=== PATIENT | female | born 1970 | race Caucasian/White ===

== ENCOUNTER 2017-10-04 10:20 | Emergency (ER) | payer OTHER ==
[~2017-10-04] VITALS: Ht 170.2 cm; Wt 80.7 kg
[2017-10-04] MEDS ORDERED: ZITHROMAX250 M2 PO (11:14)
[2017-10-04] MEDS ORDERED: PERCOCET 10-321 EACH PO (11:15)
[2017-10-04] MEDS ORDERED: PROMETHAZINE-D118 ML PO (11:15)
[2017-10-04] MEDS ORDERED: CLONAZEPAM1 M2 PO (11:15)
[2017-10-04] MEDS ORDERED: SKELAXIN800 M1 PO (11:16)
[2017-10-04] MEDS ORDERED: CLONAZEPAM0.5 M2 PO (11:16)
[2017-10-04] MEDS ORDERED: MEDROL4 M1 PO (11:17)
[2017-10-04 12:11] LABS: ABSOLUTE BASOPHIL COUNT 0.1 /CUMM (0.0-0.2); ABSOLUTE EOSINOPHIL COUNT 0 /CUMM (0.0-0.7); ABSOLUTE GRANULOCYTE CT 7.3 /CUMM (1.4-6.5); ABSOLUTE LYMPH COUNT 1.8 /CUMM (1.2-3.4); ABSOLUTE MONOCYTE COUNT 0.2 /CUMM (0.10-0.60); BASOPHIL % 0.7 % (0.0-2.0); EOSINOPHIL % 0.5 % (0-5); HEMATOCRIT 42.5 % (37-47); MEAN CORPUSCULAR HGB 31.3 PG (27.0-31.0); MEAN CORPUSCULAR HGB CONC 34.6 G/DL (33.0-37.0); MEAN CORPUSCULAR VOLUME 90.4 FL (81.0-99.0); MEAN PLATELET VOLUME 7.4 FL (7.4-10.4); PLATELET COUNT 359 /CUMM (130-400); RBC DISTRIBUTION WIDTH 13.9 % (11.5-14.5); WHITE BLOOD CELL COUNT 9.5 /CUMM (4.8-10.8)
--- NOTE | 2017-10-04 12:25 | ED GENERAL ADULT ---
History of Present Illness General Chief Complaint: General Adult Stated Complaint: BLOODY STOOL, +V, BLURRY VISION Source: patient Exam Limitations: no limitations Vital Signs & Intake/Output Vital Signs & Intake/Output Vital Signs Date Time Temp Pulse Resp B/P B/P Pulse O2 O2 Flow FiO2 Mean Ox Delivery Rate 10/04 1331 97.8 78 18 146/87 100 Room Air Room Air 10/04 1025 98.3 80 20 133/97 97 Room Air Allergies Coded Allergies: Penicillins (UNKNOWN 10/04/17) Reconcile Medications Azithromycin (Zithromax) 250 MG TABLET 1 TAB PO DAILY ANTI-INFLAMMATORY ( Reported) Brompheniramine/Pseudoephed/Dm (Bromfed Dm Cough Syrup) 2 MG-30 MG-10 MG/5 ML SYRUP 5-10 ML PO Q4-6 PRN PRN sinus congestion Clonazepam 1 MG TABLET 1.5 TAB PO QPM MENTAL HEALTH (Reported) Clonazepam 0.5 MG TABLET 1 TAB PO DAILY ANXIETY (Reported) Metaxalone (Skelaxin) 800 MG TABLET 1 TAB PO DAILY MUSCLE RELAXANT (Reported) Methylprednisolone (Medrol) 4 MG TABLET 1 TAB PO DAILY STEROID (Reported) Ondansetron (Zofran Odt) 4 MG TAB.RAPDIS 1 TAB SL TID PRN nausea Oxycodone HCl/Acetaminophen (Percocet 10-325 MG Tablet) 10 MG-325 MG TABLET 1 TAB PO TID PAIN (Reported) Promethazine/Dextromethorphan (Promethazine-Dm Syrup) 6.25 MG-15 MG/5 ML SYRUP 5 ML PO Q6P PRN COUGH (Reported) Triage Note: PT TO ED C/O 3 EPISODES OF BLACK STOOL SINCE YESTERDAY. C/O N/V. PT IS CURRENTLY BEING TREATED FOR A SINUS INFECTION, DOES NOT FEEL ANY BETTER. C/O BLURRY VISION STARTED THIS AM. Triage Nurses Notes Reviewed? yes Onset: Gradual Duration: day(s): Timing: recent history Severity: moderate HPI: 46-year-old female presents emergency department complaining of 3 episodes of black diarrhea beginning yesterday. Patient also reports associated nausea with one episode of nonbloody, bilious vomiting. Patient states that this morning she woke up with blurry vision OU. She wears distance glasses however did not test her vision with her glasses on. Patient is on day 4 of z pack antibiotics for sinus infection. She reports headache 7/10 for the past several days. She reports history of GI upset with erythromycin previously. The patient denies abdominal pain, fevers, chills, sick contact, changes in diet, head trauma, eye pain, eye discharge. (Malena Petersen) Past History Travel History Traveled to [place] past 21 day No Medical History Any Pertinent Medical History? see below for history Musculoskeletal: HERNIATED DISKS FUSIONS Surgical History Surgical History: non-contributory Psychosocial History What is your primary language Macedonian Tobacco Use: Current Daily Use Daily Tobacco Use Amount/Type: => 5 Cigarettes daily ETOH Use: denies use Illicit Drug Use: denies illicit drug use Family History Hx Contributory? No (Malena Petersen) Review of Systems Review of Systems Constitutional: Reports: no symptoms. EENTM: Reports: see HPI. Respiratory: Reports: no symptoms. Cardiovascular: Reports: no symptoms. GI: Reports: see HPI. Genitourinary: Reports: no symptoms. Musculoskeletal: Reports: no symptoms. Skin: Reports: no symptoms. Neurological/Psychological: Reports: see HPI. Hematologic/Endocrine: Reports: no symptoms. Immunologic/Allergic: Reports: no symptoms. All Other Systems: Reviewed and Negative (Malena Petersen) Physical Exam Physical Exam General Appearance: well developed/nourished, no apparent distress, alert, awake Head: atraumatic, normal appearance Eyes: Bilateral: normal appearance, PERRL, EOMI. Ears, Nose, Throat: normal pharynx, normal ENT inspection, hearing grossly normal, maxillary sinus tenderness bilaterally Neck: normal inspection, supple, full range of motion Respiratory: normal breath sounds, no respiratory distress, lungs clear Cardiovascular: regular rate/rhythm Gastrointestinal: normal bowel sounds, soft, non-tender, no organomegaly Rectal: normal exam, normal rectal tone, heme negative stool Back: normal inspection, normal range of motion Extremities: normal inspection, normal range of motion Neurologic/Psych: awake, alert, oriented x 3 Skin: intact, normal color, warm/dry Core Measures ACS in differential dx? No CVA/TIA Diagnosis: No Sepsis Present: No Sepsis Focused Exam Completed? No (Malena Petersen) Progress Differential Diagnoses I considered the following diagnoses in my evaluation of the patient: [Sinusitis , ICH, intracranial mass/lesion, infectious diarrhea, medication adverse reaction, GI bleeding, colitis, conjunctivitis] Plan of Care: Orders Procedure Date/time Status LIPASE 10/05 1155 Complete HUMAN BETA HCG SCREEN 10/05 1155 Complete COMPREHENSIVE METABOLIC PANEL 10/05 1155 Complete CBC WITHOUT DIFFERENTIAL 10/05 1155 Complete Laboratory Tests 10/04/17 1204: Anion Gap 12, Estimated GFR > 60, BUN/Creatinine Ratio 20.0, Glucose 98, Calcium 9.4, Total Bilirubin 0.6, AST 16, ALT 29, Alkaline Phosphatase 62, Total Protein 7.2, Albumin 4.3, Globulin 2.9, Albumin/Globulin Ratio 1.5, Lipase 100, Total Beta HCG NEGATIVE, CBC w Diff NO MAN DIFF REQ, RBC 4.70, MCV 90.4, MCH 31.3 H, MCHC 34.6, RDW 13.9, MPV 7.4, Gran % 77.0 H, Lymphocytes % 19.2 L, Monocytes % 2.6, Eosinophils % 0.5, Basophils % 0.7, Absolute Granulocytes 7.3 H, Absolute Lymphocytes 1.8, Absolute Monocytes 0.2, Absolute Eosinophils 0, Absolute Basophils 0.[address] scan within normal limits. Patient's rectal exam is guaiac negative. Patient has no abdominal tenderness on physical exam. Labs are benign. Patient 's symptoms may be related to her antibiotics or sinusitis. I informed patient that sinus infections are usually viral. I offered to switch the patient's antibiotic or have her discontinue the antibiotic however patient elects to finish her last day of azithromycin. She will begin Zofran and Imodium for her GI symptoms. Patient in no acute distress, nontoxic appearing, vital signs are stable. The patient agrees with the plan of care. Patient discussed with Dr. Smart who agrees with this plan. Diagnostic Imaging: Viewed by Me: CT Scan. Discussed w/RAD: CT Scan. Radiology Impression: PATIENT: JEZ CASTAÑEDA PRESENT AGE: 46 PATIENT ACCOUNT NO: [id number] : 70 LOCATION: [facility] ORDERING PHYSICIAN: Malena SUTHERLAND SERVICE DATE: 10/04/17-1156 EXAM TYPE: CAT - CT HEAD WO IV CONTRAST EXAMINATION: CT HEAD WITHOUT CONTRAST CLINICAL INFORMATION: Headache, blurred vision. COMPARISON: None TECHNIQUE: Contiguous axial imaging was performed from the skull base to vertex without intravenous administration of contrast. DLP: Sixth 19 mGy-cm FINDINGS: There is no evidence of acute intracranial hemorrhage or territorial infarction. No abnormal mass effect or midline shift is seen. Oakes to white matter differentiation is well preserved. No extra-axial fluid collections are identified. The ventricles are normal in size. There is no abnormal attenuation within the brain parenchyma. The osseous structures and soft tissues are normal. The middle ear cavities, mastoid air cells and visualized portions of the paranasal sinuses are well aerated apart from mild mucosal thickening in the ethmoid air cells and a small retention cyst in the right sphenoid air cell. IMPRESSION: No acute intracranial pathology. DICTATED BY: Jesse Browning MD DATE/TIME DICTATED:10/04/171257 TELEVISION SCRIPT WRITER:ADARSH DATE/TIME TRANSCRIBED:10/04/171257 CONFIDENTIAL, DO NOT COPY WITHOUT APPROPRIATE AUTHORIZATION. <Electronically signed in Other Vendor System> SIGNED BY: Jesse Browning MD 10/04/17 1303 Initial ED EKG: none (Carol SUTHERLAND,Malena Winston) Departure Departure Disposition: HOME OR SELF CARE Condition: Stable Clinical Impression Primary Impression: Diarrhea Qualifiers: Diarrhea type: unspecified type Qualified Code: R19.7 - Diarrhea, unspecified Secondary Impressions: Blurry vision, bilateral Headache Qualifiers: Headache type: unspecified Headache chronicity pattern: acute headache Intractability: not intractable Qualified Code: R51 - Headache Nausea Referrals: Patient Has No Primary Care Dr (PCP/Family) Additional Instructions: Continue azithromycin and steroid pack as prescribed. Take Zofran as prescribed as needed for nausea. You may take immodium if necessary for diarrhea. Contiue flonase. Begin Bromfed and discontinue mucinex. Follow-up with your eye doctor regarding your blurry vision. Return if you has any worsening symptoms or concerns. Please note that there might be incidental findings in your evaluation that are unrelated to the current emergency department visit. Please notify your primary care doctor about this emergency department visit in order to obtain and review all of the testing performed so that these incidental findings can be monitored as needed. If you had an x-ray performed, please understand that some fractures may not be seen on the initial set of x-rays. If your symptoms persist you might need a repeat set of x-rays to check for such a fracture. If you had a laceration evaluated, please understand that foreign bodies such as glass or wood may not be visible to the naked eye or on plain x-rays. If the wound becomes red, swollen, increasingly more painful or if there is any drainage from the wound, please have it reevaluated by a physician for the possibility of a retained foreign body. If you're unable to follow up as outlined in the discharge instructions please return to the emergency department. Thank you for choosing the [facility] Emergency Department for your care. It was a pleasure to serve you today. Departure Forms: Customer Survey General Discharge Information Prescriptions: Current Visit Scripts Ondansetron (Zofran Odt) 1 TAB SL TID PRN nausea #10 TAB Brompheniramine/Pseudoephed/Dm (Bromfed Dm Cough Syrup) 5-10 ML PO Q4-6 PRN PRN sinus congestion #120 ML (Malena Petersen) PA/CLERK SUPERVISOR Co-Sign Statement Statement: ED Attending supervision documentation- [] I saw and evaluated the patient. I have also reviewed all the pertinent lab results and diagnostic results. I agree with the findings and the plan of care as documented in the PA's/CLERK SUPERVISOR's documentation. [X] I have reviewed the ED Record and agree with the PA's/CLERK SUPERVISOR's documentation. [] Additions or exceptions (if any) to the PAs/CLERK SUPERVISOR's note and plan are summarized below: [] (Bing STANLEY,Edgar Braden) Critical Care Note Critical Care Note Critical Care Time: non-applicable (Malena Petersen)
--- NOTE | 2017-10-04 13:03 | CT SCAN REPORT ---
EXAMINATION: CT HEAD WITHOUT CONTRAST CLINICAL INFORMATION: Headache, blurred vision. COMPARISON: None TECHNIQUE: Contiguous axial imaging was performed from the skull base to vertex without intravenous administration of contrast. DLP: Sixth 19 mGy-cm FINDINGS: There is no evidence of acute intracranial hemorrhage or territorial infarction. No abnormal mass effect or midline shift is seen. Oakes to white matter differentiation is well preserved. No extra-axial fluid collections are identified. The ventricles are normal in size. There is no abnormal attenuation within the brain parenchyma. The osseous structures and soft tissues are normal. The middle ear cavities, mastoid air cells and visualized portions of the paranasal sinuses are well aerated apart from mild mucosal thickening in the ethmoid air cells and a small retention cyst in the right sphenoid air cell. IMPRESSION: No acute intracranial pathology.
[2017-10-04 13:31] VITALS: BP 146/87
[2017-10-04] MEDS ORDERED: ZOFRAN ODT4 M1 SL (13:44)
[2017-10-04] MEDS ORDERED: BROMFED DM COU118 M1 PO (13:44)
== END 2017-10-04 14:44 ==
LOC: ERH 10:20
PROVIDERS: Physician Assistant
DX: R19.7 Diarrhea, unspecified (principal); H53.8 Other visual disturbances; R51 Headache; R11.0 Nausea
CPT/HCPCS: J3101